=== PATIENT | female | born 1975 | race Caucasian/White ===

== ENCOUNTER → 2021-03-04 09:13 | Outpatient (CLI) | payer MEDICAID | END | disposition home or self-care (01) | LOC: D.LAB 09:06 | PROVIDERS: ATTEND Internal Medicine Pulmonary Disease | DX: R06.00 Dyspnea, unspecified (principal); Z86.711 Personal history of pulmonary embolism ==

== ENCOUNTER 2021-03-04 09:33 | Emergency (ER) | payer MEDICAID ==
[~2021-03-04] VITALS: Ht 167.6 cm; Wt 77.3 kg
[2021-03-04 09:39] VITALS: BP 159/80; Ht 167.6 cm; Wt 77.3 kg
== END 2021-03-04 11:33 | disposition home or self-care (01) ==
LOC: D.ER 09:33
DX: G40.909 Epilepsy, unspecified, not intractable, without status epilepticus (principal); R41.0 Disorientation, unspecified; Z91.19 Patient's noncompliance with other medical treatment and regimen; G93.0 Cerebral cysts

== ENCOUNTER → 2021-03-09 09:34 | Outpatient (CLI) | payer MEDICAID ==
[2021-03-04 09:39] VITALS: BMI 27.5
[2021-03-09 10:05] LABS: BASOPHILS 1.4 % (0-2); EOSINOPHILS 1.7 % (0-7); HEMATOCRIT 45.6 % (36.0-48.0); HEMOGLOBIN 15.7 g/dL (12-16); LYMPHOCYTES 21.7 % (15-50); MCH 31.7 pg (26.0-34.0); MCHC 34.4 g/dL (31.0-37.0); MONOCYTES 10.2 % (2-11); PLATELET COUNT 394 10x3/uL (130-400); RBC 4.95 10x6/uL (4.00-5.40); RDW 12.6 % (11.5-14.5); WBC 9.7 10x3/uL (4.8-10.8)
[2021-03-09 10:08] LABS: CREATININE - SERUM 0.8 mg/dL (0.6-1.3)
[2021-03-10 09:13] LABS: IMMUNOGLOBULIN A 270 mg/dL (87-352); IMMUNOGLOBULIN G 736 mg/dL (586-1602); IMMUNOGLOBULIN M 92 mg/dL (26-217)
[2021-03-10 10:13] LABS: ANA REFLEX - DIRECT Negative (Negative)
== END | disposition home or self-care (01) ==
LOC: D.LAB 08:15 → D.CT 10:30 → D.RT 11:00
PROVIDERS: ATTEND Internal Medicine Pulmonary Disease
DX: R06.00 Dyspnea, unspecified (principal); Z86.711 Personal history of pulmonary embolism